=== PATIENT | female | born 1955 | race Caucasian/White ===

== ENCOUNTER 2020-05-07 06:53 | Day surgery (SDC) | payer OTHER, BC ==
[2020-05-02 12:10] VITALS: BMI 21.9
[2020-05-07] MEDS ORDERED: MIDAZOLAM HCL 2 MG/2 ML SINGLE DOSE VIAL ONE (08:30)
[2020-05-07] MEDS ORDERED: ROPIVACAINE HCL 0.5% 30ML VIAL ONE (08:30)
[2020-05-07] MEDS ORDERED: DEXAMETHASONE SOD PHOSPHATE 4 MG/1 ML VIAL ONE (09:53)
[2020-05-07] MEDS ORDERED: KETOROLAC TROMETHAMINE 30 MG/1 ML VIAL ONE (09:53)
[2020-05-07] MEDS ORDERED: ONDANSETRON 4 MG/2 ML VIAL ONE (09:53)
[2020-05-07] MEDS ORDERED: ceFAZolin SODIUM 1 GM VIAL ONE (09:53)
[2020-05-07] MEDS ORDERED: PROPOFOL 20 ML ONE ×2 (09:53→10:01)
[2020-05-07] MEDS ORDERED: PROMETHAZINE HCL 25 MG/1 ML VIAL IVPUSH PRN (10:46)
[2020-05-07] MEDS ORDERED: oxyCODONE HCL 5 MG TABLET PO PRN ×2 (10:46)
[2020-05-07] MEDS ORDERED: ONDANSETRON 4 MG/2 ML VIAL IVPUSH PRN (10:46)
[2020-05-07 12:11] VITALS: PULSE 60; TEMP 97.4
[2020-05-07 12:55] VITALS: BP 123/68
== END 2020-05-07 12:45 | disposition home or self-care (01) ==
LOC: FASU 06:53
PROVIDERS: ATTEND Orthopaedic Surgery
PROC: 0RNK4ZZ Release Left Shoulder Joint, Percutaneous Endoscopic Approach (ICD-10-PCS; principal; 2020-05-07 10:09)
DX: M75.42 Impingement syndrome of left shoulder (principal)
CPT/HCPCS: 94760

== ENCOUNTER 2022-10-15 09:56 | Day surgery (SDC) | payer SELFPAY ==
[2022-10-12 15:45] VITALS: BMI 23.8
[2022-10-15] MEDS ORDERED: BACITRACIN 15 GM TUBE TOPICAL OINTMENT ONE (10:12)
[2022-10-15] MEDS ORDERED: BUPIVACAINE HCL/PF 0.25% (2.5MG/ML) 10 ML VIAL ONE (10:12)
[2022-10-15] MEDS ORDERED: POVIDONE-IODINE 5% OPHTHALMIC PREP 30 ML SOLUTION ONE (10:12)
[2022-10-15] MEDS ORDERED: TETRACAINE 0.5% OPHTH SOLN 2 ML BOTTLE ONE (10:13)
[2022-10-15] MEDS ORDERED: BSS (NA/CA/MG/K) BALANCED SALT SOLUTION OPHTH SOLN 15 ML BOTTLE ONE (10:13)
[2022-10-15] MEDS ORDERED: MIDAZOLAM HCL 2 MG/2 ML SINGLE DOSE VIAL ONE ×2 (12:01→12:31)
[2022-10-15] MEDS ORDERED: PROPOFOL 20 ML ONE ×5 (12:01→14:14)
[2022-10-15] MEDS ORDERED: ceFAZolin SODIUM 1 GM VIAL ONE (12:29)
[2022-10-15] MEDS ORDERED: DEXAMETHASONE SOD PHOSPHATE 4 MG/1 ML VIAL ONE (12:31)
[2022-10-15] MEDS ORDERED: ONDANSETRON 4 MG/2 ML VIAL ONE ×2 (12:31→14:13)
[2022-10-15] MEDS ORDERED: EPINEPHrine/PF 1 MG/1 ML (1:1,000) AMPULE ONE (12:33)
[2022-10-15] MEDS ORDERED: LIDOCAINE HCL/PF 1% SDV 5ML VIAL ONE (12:34)
[2022-10-15] MEDS ORDERED: BUPIVACAINE HCL/EPINEPHRINE/PF 30 ML VIAL IJ ONE (12:34)
[2022-10-15] MEDS ORDERED: GLYCOPYRROLATE 0.2 MG/1 ML VIAL ONE (13:04)
[2022-10-15] MEDS ORDERED: ONDANSETRON 4 MG/2 ML VIAL IVPUSH PRN ×2 (14:27→14:39)
[2022-10-15] MEDS ORDERED: oxyCODONE HCL 5 MG TABLET PO PRN (14:27)
[2022-10-15] MEDS ORDERED: LACTATED RINGERS SOLUTION 1,000 ML IV SCH ×2 (14:30→14:45)
[2022-10-15] MEDS ORDERED: ACETAMINOPHEN 500 MG TABLET (FP) PO ONE (14:30)
[2022-10-15] MEDS ORDERED: ACETAMINOPHEN 325 MG TABLET (FP) PO PRN (14:39)
[2022-10-15 15:16] VITALS: TEMP 97.3
[2022-10-15 16:00] VITALS: BP 144/92; PULSE 72; RESP 18
== END 2022-10-15 16:00 | disposition home or self-care (01) ==
LOC: FASU 09:56
PROVIDERS: ATTEND Plastic Surgery
CPT/HCPCS: 94760

== ENCOUNTER 2024-01-27 07:23 | Day surgery (SDC) | payer SELFPAY ==
[2024-01-25 08:37] VITALS: BMI 22.6
[2024-01-27] MEDS ORDERED: LIDOCAINE 1%/EPI 1:100000 (20 ML MULTI DOSE VIAL) ONE (08:48)
[2024-01-27] MEDS ORDERED: MIDAZOLAM HCL 2 MG/2 ML SINGLE DOSE VIAL ONE ×3 (09:43→11:10)
[2024-01-27] MEDS ORDERED: cloNIDine HCL 0.1 MG TABLET ONE (09:57)
[2024-01-27] MEDS ORDERED: PROPOFOL 40 ML ONE (10:05)
[2024-01-27] MEDS ORDERED: NITROGLYCERIN 2% OINTMENT - 1GM PACKET TD ONE (10:40)
[2024-01-27] MEDS ORDERED: ONDANSETRON 4 MG/2 ML VIAL ONE ×2 (11:02→11:50)
[2024-01-27] MEDS ORDERED: ceFAZolin SODIUM 1 GM VIAL ONE (11:02)
[2024-01-27] MEDS ORDERED: DEXAMETHASONE SOD PHOSPHATE 4 MG/1 ML VIAL ONE (11:02)
[2024-01-27] MEDS ORDERED: PROPOFOL 20 ML ONE ×3 (11:27→13:24)
[2024-01-27] MEDS ORDERED: BACITRACIN ZINC 15 GM TUBE TOPICAL OINTMENT ONE (12:45)
[2024-01-27] MEDS ORDERED: HYDROmorphone HCL/PF 1 MG/ML VIAL ONE (12:51)
[2024-01-27] MEDS ORDERED: oxyCODONE HCL 5 MG TABLET PO PRN (14:10)
[2024-01-27] MEDS ORDERED: PROMETHAZINE HCL 25 MG/1 ML VIAL IVPB PRN (14:10)
[2024-01-27] MEDS: ACETAMINOPHEN 1000 MG/100 ML BAG IVPB ONE (14:13)
[2024-01-27] MEDS ORDERED: LACTATED RINGERS SOLUTION 1,000 ML IV SCH (14:15)
[2024-01-27 15:34] VITALS: BP 95/58; PULSE 81; RESP 16; TEMP 96.9
== END 2024-01-27 16:40 | disposition home or self-care (01) ==
LOC: FASU 07:23
PROVIDERS: ATTEND Plastic Surgery
CPT/HCPCS: 94760; J0131